=== PATIENT | female | born 1995 | race Caucasian/White ===

== ENCOUNTER 2020-10-14 12:27 | Emergency (ER) | payer OTHER ==
[2020-10-14 14:25] LABS: HEMOGLOBIN 12.2 gm/dl (12.3-15.3); RED BLOOD COUNT 3.92 M/UL (4.00-5.10); WHITE BLOOD COUNT 6.1 K/UL (4.5-11.0)
[2020-10-14 14:48] LABS: BUN/CREATININE RATIO 18 (0-10)
[2020-10-14] MEDS ORDERED: AUGMENTIN 875-1 EACH PO (16:52)
== END 2020-10-14 17:11 | disposition left against medical advice (07) ==
LOC: ER1 12:27
PROVIDERS: Emergency Medicine
DX: J02.0 Streptococcal pharyngitis (principal); R59.0 Localized enlarged lymph nodes; E03.9 Hypothyroidism, unspecified; F17.210 Nicotine dependence, cigarettes, uncomplicated
CPT/HCPCS: 70491; 80053; 84439; 84443; 84703; 85025; 86403; 87081; 87880; 99284; J7030; Q9967